=== PATIENT | male | born 1985 | race African-American/Black ===

== ENCOUNTER 2017-08-16 22:12 | Emergency (ER) | payer BC ==
[~2017-08-16] VITALS: Ht 154.9 cm; Wt 77.3 kg
[~2017-08-16 22:12] MED LIST: FLEXERIL 1010 MG/TAB PO; MOTRIN 800800 MG/TAB PO
[2017-08-16 22:15] VITALS: TEMP 100
[2017-08-16 22:48] LABS: INFLUENZA A NEGATIVE; INFLUENZA B NEGATIVE
[2017-08-16 23:08] LABS: HEMATOCRIT 46.5 % (42.0-52.0); HEMOGLOBIN 15.4 g/dl (13.5-18.0); MEAN CELL VOLUME 78 fl (80.0-100.0); MEAN CORPUSCULAR HEMOGLOBIN 26 pg (27.0-31.0); MEAN CORPUSCULAR HGB CONC 33 g/dl (33.0-37.0); MEAN PLATELET VOLUME 9.5 fl (7.4-10.4); PLATELET COUNT 180 K/mm3 (130-400); RED BLOOD COUNT 5.96 M/mm3 (4.20-5.60); REDCELL DISTRIBUTION WIDTH-CV 12.6 % (11.5-14.5)
[2017-08-16 23:16] LABS: ALBUMIN 4.5 gm/dL (3.5-5.0); BILIRUBIN,TOTAL 0.6 mg/dL (0.0-1.0); CALCIUM 9.2 mg/dL (8.4-10.2); CREATININE, serum 0.98 mg/dL (0.66-1.25); POTASSIUM 3.9 mmol/L (3.4-5.0); TOTAL PROTEIN 8.3 gm/dL (6.4-8.2)
[2017-08-16 23:26] LABS: BAND 20 % (0-10); NEUTROPHILS 16 % (42.0-75.2)
[2017-08-16 23:27] LABS: LYMPHOCYTE 47 % (20.0-51.0); PLATELET ESTIMATE NORMAL (NORMAL)
[2017-08-16 23:55] VITALS: BP 123/78; PULSE 79
== END 2017-08-16 23:57 | disposition home or self-care (01) ==
LOC: COL.ER 22:12
PROVIDERS: Emergency Medicine
DX: B34.9 Viral infection, unspecified (principal)
CPT/HCPCS: J1885; J7030

== ENCOUNTER 2019-05-20 10:34 | Emergency (ER) | payer BC ==
[~2019-05-20] VITALS: Ht 180.3 cm; Wt 85.5 kg
[2019-05-20 10:46] VITALS: BP 129/82; TEMP 98.4
[2019-05-20] MEDS ORDERED: ONE-A-DAY WOMEN1 TAB (11:00)
[2019-05-20 11:44] VITALS: PULSE 75
== END 2019-05-20 11:47 | disposition home or self-care (01) ==
LOC: COL.ER 10:34
DX: S60.221A Contusion of right hand, initial encounter (principal); W20.8XXA Other cause of strike by thrown, projected or falling object, initial encounter; Y92.009 Unspecified place in unspecified non-institutional (private) residence as the place of occurrence of the external cause

== ENCOUNTER 2019-12-26 21:14 | Emergency (ER) | payer BC ==
[~2019-12-26] VITALS: Ht 180.3 cm; Wt 84.1 kg
[~2019-12-26 21:14] MED LIST changes: +ONE-A-DAY WOMEN1 TAB
[2019-12-26 21:21] VITALS: BP 164/96; TEMP 98.6
[2019-12-26 22:59] LABS: STREP SCREEN POSITIVE
[2019-12-26] MEDS ORDERED: CEPHALEXIN500 M1 PO (23:37)
[2019-12-27 01:03] VITALS: PULSE 93
== END 2019-12-27 01:03 | disposition home or self-care (01) ==
LOC: COL.ER 21:14
PROVIDERS: Emergency Medicine
DX: J02.0 Streptococcal pharyngitis (principal)

== ENCOUNTER → 2021-11-18 | Outpatient (CLI) | payer BC ==
[~2021-11-18] MED LIST changes: +CEPHALEXIN500 M1 PO
== END ==
LOC: COL.RAD 10:39
DX: I86.1 Scrotal varices (principal)

== ENCOUNTER → 2023-08-24 | Outpatient (CLI) | payer BC ==
[~2023-08-24] MED LIST changes: +CIPRO 500MG TA500 MG PO; +ZOFRAN ODT4 MG PO
== END ==
LOC: COL.RAD 11:13
DX: E05.00 Thyrotoxicosis with diffuse goiter without thyrotoxic crisis or storm (principal)
CPT/HCPCS: A9516-JZ

== ENCOUNTER 2023-10-04 05:22 | Emergency (ER) | payer BC ==
[~2023-10-04] VITALS: Ht 180.3 cm; Wt 97.3 kg
[2023-10-04 05:26] VITALS: BP 157/90; TEMP 98.1
[2023-10-04 05:56] LABS: BASO # 0.1 K/mm3 (0.0-0.2); BASO % 1.2 % (0.0-2.0); EOS # 0.2 K/mm3 (0.0-0.7); EOS % 4.6 % (0.0-4.0); GRAN # 1.3 K/mm3 (1.4-6.5); GRAN % 29.6 % (42.2-75.2); HEMATOCRIT 45.7 % (42.0-52.0); HEMOGLOBIN 15.1 g/dl (13.5-18.0); LYMPH # 2.2 K/mm3 (1.2-3.4); LYMPH % 51.5 % (20.0-51.0); MEAN CELL VOLUME 79 fl (80.0-100.0); MEAN CORPUSCULAR HEMOGLOBIN 26 pg (27-31); MEAN CORPUSCULAR HGB CONC 33 g/dl (33.0-37.0); MEAN PLATELET VOLUME 8.9 fl (7.4-10.4); MONO # 0.6 K/mm3 (0.1-0.6); MONO % 12.9 % (1.7-9.3); PLATELET COUNT 287 K/mm3 (130-400); RED BLOOD COUNT 5.79 M/mm3 (4.20-5.60); REDCELL DISTRIBUTION WIDTH-CV 13.1 % (11.5-14.5)
[2023-10-04] MEDS ORDERED: Ketorolac 30 MG/ML VIAL IV ONE (06:00)
[2023-10-04] MEDS ORDERED: NS 500 ML IV ONE (06:00)
[2023-10-04 06:07] LABS: ALBUMIN 4.1 gm/dL (3.5-5.0); BILIRUBIN,TOTAL 0.5 mg/dL (0.2-1.2); CALCIUM 9.3 mg/dL (8.4-10.2); CREATININE, serum 0.97 mg/dL (0.72-1.25); POTASSIUM 3.7 mmol/L (3.5-4.5); TOTAL PROTEIN 7.4 gm/dL (6.2-8.1)
[2023-10-04] MEDS ORDERED: Iohexol 300 - 100 ML VIAL IV ONE (06:09)
[2023-10-04] MEDS ORDERED: NS 50 ML IV SCH (06:10)
[2023-10-04 06:51] VITALS: PULSE 75
== END 2023-10-04 06:51 | disposition home or self-care (01) ==
LOC: COL.ER 05:22
PROVIDERS: Internal Medicine
DX: K59.00 Constipation, unspecified (principal); D72.819 Decreased white blood cell count, unspecified; D72.820 Lymphocytosis (symptomatic)
CPT/HCPCS: J1885; J7040; Q9967